=== PATIENT | female | born 1935 | race Caucasian/White ===

== ENCOUNTER → 2016-08-31 | Outpatient (CLI) | payer OTHER, BC ==
[~2016-08-31] MED LIST: ALEVE220 MG PO; APAP500 PO; ASPIRIN325 PO; LOVASTATIN 20 M20 MG PO; NORCO 10-325 T1 EACH PO; UNICOMPLEX M TA1 TA1 PO
== END ==
LOC: RAD 01:21
DX: Z12.31 Encounter for screening mammogram for malignant neoplasm of breast (principal)

== ENCOUNTER → 2016-10-01 | Outpatient (CLI) | payer OTHER, BC ==
[2016-10-01 09:59] LABS: HEMATOCRIT 44.4 % (37.0-47.0); HEMOGLOBIN 14.9 gm/dL (12.0-15.0); MCH 30.1 pg (26.0-34.0); MCHC 33.6 g/dL (28.0-37.0); MCV 89.5 fL (80.0-100.0); RBC 4.97 mil/uL (4.20-5.00); RDW 13.2 % (10.5-14.5); WBC 3.7 thou/uL (4.0-11.0)
[2016-10-01 10:09] LABS: ANION GAP 5 mmol/L (7-16); BUN 13 mg/dL (7-18); CALCIUM 9.6 mg/dL (8.5-10.1); CHLORIDE 103 mmol/L (98-107); CO2 33 mmol/L (21-32); CREATININE 0.8 mg/dL (0.6-1.0); GLUCOSE 97 mg/dL (74-106); POTASSIUM 4.5 mmol/L (3.5-5.1); SODIUM 141 mmol/L (136-145)
[2016-10-01 10:14] LABS: ALBUMIN 4.2 g/dL (3.4-5.0); ALKALINE PHOSPHATASE 85 U/L (46-116); CHOLESTEROL 194 mg/dL (<200); HDL CHOLESTEROL 68 mg/dL (>40); LDL CHOLESTEROL 101 mg/dL (<100); SGOT 33 U/L (15-37); SGPT 27 U/L (30-65); TC:HDL 2.9 Ratio (Not establshd); TOTAL BILIRUBIN 0.5 mg/dL (<0.1-1.0); TOTAL PROTEIN 7.1 g/dL (6.4-8.2); TRIGLYCERIDE 129 mg/dL (<150); VLDL 26 mg/dL (<40)
== END ==
LOC: CAT 09:19
PROVIDERS: Internal Medicine
DX: C34.90 Malignant neoplasm of unspecified part of unspecified bronchus or lung (principal)

== ENCOUNTER → 2016-10-10 | Outpatient (CLI) | payer OTHER, BC | LOC: PET 04:24 | DX: C34.90 Malignant neoplasm of unspecified part of unspecified bronchus or lung (principal); C50.919 Malignant neoplasm of unspecified site of unspecified female breast; M47.894 Other spondylosis, thoracic region; M47.896 Other spondylosis, lumbar region ==

== ENCOUNTER → 2018-10-06 | Outpatient (CLI) | payer OTHER, BC | LOC: PET 10:17 | DX: Z12.31 Encounter for screening mammogram for malignant neoplasm of breast (principal) ==